=== PATIENT | female | born 1980 | race Caucasian/White ===

== ENCOUNTER 2017-12-06 21:45 | Emergency (ER) | payer OTHER ==
[~2017-12-06] VITALS: Ht 160 cm; Wt 86.2 kg
[~2017-12-06 21:45] MED LIST: ACET-8386 PO; IBUP-2213 PO; PREN-385 PO
[2017-12-06 21:47] VITALS: BP 131/72
--- NOTE | 2017-12-06 21:47 | NUR ---
37 Y/O F W/C/O R UPPER CHEST PAIN/SOB/COUGH X YESTERDAY ON AND OFF. MED HX . DEMIAN BANSAL MADE AWARE.
--- NOTE | 2017-12-06 21:50 | NUR ---
PT AMBULATED TO BED 5. FAMILY/FRIEND AT BEDSIDE
--- NOTE | 2017-12-06 22:44 | NUR ---
EKG DONE, UA DONE HCG-NEG, VSS
--- NOTE | 2017-12-06 23:00 | NUR ---
Dr. Cohn evaluating patient at bedside.
[2017-12-06 23:14] VITALS: BP 112/71
== END 2017-12-06 23:14 | disposition home or self-care (01) ==
LOC: MED 21:45
DX: R07.89 Other chest pain (principal); R05 Cough; R00.2 Palpitations
CPT/HCPCS: 93005; 99283

== ENCOUNTER 2018-01-11 10:28 | Outpatient (CLI) | payer OTHER | END 2018-01-11 21:01 | disposition home or self-care (01) | LOC: MUS 10:28 | DX: E04.1 Nontoxic single thyroid nodule (principal) | CPT/HCPCS: 76536; Q0092 ==

== ENCOUNTER 2018-02-02 13:45 | Emergency (ER) | payer OTHER ==
[~2018-02-02] VITALS: Ht 162.6 cm; Wt 81.6 kg
[2018-02-02 13:57] VITALS: BP 126/76
--- NOTE | 2018-02-02 14:01 | NUR ---
pt stable to wait in lobby area, pt informed to notify staff with any acute changes. ok per Dr Edmond to wait in lobby.
--- NOTE | 2018-02-02 14:40 | NUR ---
PT AMBULATES TO BED 1 AT THIS TIME W/ STEADY GAIT
--- NOTE | 2018-02-02 15:00 | NUR ---
37f bib with c/o 10/01 "Dull" non provoked intermittent chest pain x 5 days with palpitations. Patient sts she believes her medication, liquid iodine, is causing the chest pain. Patient denies any nausea or SOB. Skin is dry/color appriopriate for ethinicty. RR are even and unlabored. Patient to cardiac, bp, pulse, and pulse ox monitoring. Changed into gown. Awaiting er md saul. Will continue to monitor.
[2018-02-02 16:28] LABS: BASOPHILS % (AUTO) 0.5 % (0.0-2.0); EOSINOPHILS % (AUTO) 0.5 % (0.0-4.0); HEMATOCRIT 42.8 % (36-48); LYMPHOCYTES # (AUTO) 1.2 K/uL (2.5-16.5); LYMPHOCYTES % (AUTO) 20.6 % (20.5-51.1); MEAN CORPUSCULAR HEMOGLOBIN 29 pg (27-31); MEAN CORPUSCULAR HGB CONC 33 g/dL (33-37); MEAN CORPUSCULAR VOLUME 89.6 fL (80-94); MONOCYTES # (AUTO) 0.4 K/uL (0.8-1.0); MONOCYTES % (AUTO) 7.3 % (1.7-9.3); NEUTROPHILS % (AUTO) 71.1 % (42.2-75.2); PLATELET COUNT (AUTO) 191 K/uL (140-450); RED BLOOD CELL COUNT(AUTO) 4.78 MIL/uL (4.20-5.40); RED CELL DISTRIBUTION WIDTH 13.3 % (11.6-13.7); WHITE BLOOD COUNT (AUTO) 5.7 K/uL (4.8-10.8)
[2018-02-02 16:49] LABS: PROTHROMBIN TIME 12.1 secs (10.8-13.4)
[2018-02-02 16:51] LABS: ANION GAP 13.7 (8-16); CARBON DIOXIDE 26.4 mmol/L (21-32); CREATININE 0.9 mg/dL (0.6-1.3); POTASSIUM 4.1 mmol/L (3.5-5.1); TOTAL BILIRUBIN 0.3 mg/dL (0.0-1.0)
[2018-02-02 17:01] LABS: FREE T4 (FREE THYROXINE) 0.67 ng/dL (0.76-1.46); THYROID STIMULATING HORMONE 2.48 uIU/mL (0.34-3.74)
[2018-02-02 18:50] VITALS: BP 117/78
--- NOTE | 2018-02-02 18:50 | NUR ---
Patient discharged with v/s stable. Written and verbal after care instructions given and explained. Patient verbalized understanding. Ambulatory with steady gait. All questions addressed prior to discharge. Advised to follow up with PMD.
== END 2018-02-02 18:50 | disposition home or self-care (01) ==
LOC: MED 13:45
DX: R00.2 Palpitations (principal); E04.1 Nontoxic single thyroid nodule; R45.82 Worries; F41.9 Anxiety disorder, unspecified; E03.9 Hypothyroidism, unspecified; Z79.899 Other long term (current) drug therapy
CPT/HCPCS: 36415; 71045; 80053; 81002; 81025; 83735; 83880; 84439; 84443; 84479; 84484; 85025; 85610; 85730; 93005; 99285; Q0092

== ENCOUNTER 2018-02-23 08:30 | Outpatient (CLI) | payer OTHER ==
[2018-02-23 09:18] LABS: BASOPHILS % (AUTO) 0.4 % (0.0-2.0); EOSINOPHILS % (AUTO) 0.8 % (0.0-4.0); HEMATOCRIT 40.1 % (36-48); HEMOGLOBIN 13.5 g/dL (12.0-16.0); LYMPHOCYTES # (AUTO) 0.9 K/uL (2.5-16.5); MEAN CORPUSCULAR HEMOGLOBIN 30 pg (27-31); MEAN CORPUSCULAR HGB CONC 34 g/dL (33-37); MEAN CORPUSCULAR VOLUME 89.3 fL (80-94); MONOCYTES # (AUTO) 0.3 K/uL (0.8-1.0); MONOCYTES % (AUTO) 4.6 % (1.7-9.3); NEUTROPHILS # (AUTO) 4.3 K/uL (1.8-7.7); NEUTROPHILS % (AUTO) 77.2 % (42.2-75.2); PLATELET COUNT (AUTO) 169 K/uL (140-450); RED BLOOD CELL COUNT(AUTO) 4.49 MIL/uL (4.20-5.40); RED CELL DISTRIBUTION WIDTH 13.4 % (11.6-13.7); WHITE BLOOD COUNT (AUTO) 5.5 K/uL (4.8-10.8)
[2018-02-23 13:33] LABS: ANION GAP 10.6 (8-16); CARBON DIOXIDE 28.1 mmol/L (21-32); POTASSIUM 3.7 mmol/L (3.5-5.1)
[2018-02-23 13:34] LABS: CREATININE 0.9 mg/dL (0.6-1.3); TOTAL BILIRUBIN 0.4 mg/dL (0.0-1.0)
[2018-02-23 13:35] LABS: ALBUMIN 3.9 g/dL (3.4-5.0)
[2018-02-23 13:40] LABS: THYROID STIMULATING HORMONE 0.19 uIU/mL (0.34-3.74)
[2018-02-23 13:41] LABS: FREE T4 (FREE THYROXINE) 1.21 ng/dL (0.76-1.46)
[2018-02-23 18:03] LABS: CHOL/HDL RATIO 2.7 (1-4.5)
[2018-02-24 10:28] LABS: FERRITIN 52 ng/mL (15-150); THYROID PEROXIDASE (TPO) AB 8 IU/mL (0-34); TRIIODOTHYRONINE 105 ng/dL (71-180)
== END 2018-02-23 21:27 | disposition home or self-care (01) ==
LOC: MLB 08:30
PROVIDERS: ATTEND Internal Medicine Geriatric Medicine
DX: Z00.01 Encounter for general adult medical examination with abnormal findings (principal); R53.83 Other fatigue; E07.9 Disorder of thyroid, unspecified
CPT/HCPCS: 36415; 80053; 82306; 82728; 83540; 84439; 84443; 84480; 85025; 86376; 86800

== ENCOUNTER 2018-07-19 09:04 | Outpatient (CLI) | payer OTHER | END 2018-07-19 19:52 | disposition home or self-care (01) | LOC: MLB 09:04 | PROVIDERS: ATTEND Internal Medicine Geriatric Medicine | DX: E03.9 Hypothyroidism, unspecified (principal) | CPT/HCPCS: 36415; 84439; 84443 ==

== ENCOUNTER 2018-09-20 05:30 | Emergency (ER) | payer OTHER ==
[~2018-09-20] VITALS: Ht 167.6 cm; Wt 83.9 kg
[2018-09-20 05:42] VITALS: BP 132/93
--- NOTE | 2018-09-20 05:42 | NUR ---
PT AMBULATED TO BED 4 WITH VSS.
--- NOTE | 2018-09-20 05:45 | NUR ---
PATIENT CAME IN TO ER WITH C/O PAIN IN THE THROAT, KOHLER,REDNESS AND SWELLING TO THE RIGHT EYE, AND RIGHT EAR X 2 DAYS.PT STATES THAT HER THROAT IS SORE AND TONSILS AND ARE SWOLLEN.PT HAS REDNESS TO THE BACK OF HER THROAT. PATIENT STATES PAIN OF 7/10 AT THIS TIME;PT IS A/OX4.VSS; PATIENT POSITIONED FOR COMFORT; HOB ELEVATED; BEDRAILS UP X2; BED DOWN. ER MD MADE AWARE OF PT STATUS.
--- NOTE | 2018-09-20 06:00 | NUR ---
Note marthaone in EDM - 09/20/18 at 0636 by [email or web address] Patient discharged with v/s stable. Written and verbal after care instructions given and explained. Patient alert, oriented and verbalized understanding of instructions. Ambulatory with steady gait. All questions addressed prior to discharge. ID band removed. Patient advised to follow up with PMD. Rx of AMOXICILLIN AND POLYMYXIN B SULFATE/TRIMETHOPRIM SULFATE WAS given. Patient educated on indication of medication including possible reaction and side effects. Opportunity to ask questions provided and answered.
[2018-09-20 06:16] VITALS: BP 132/93
--- NOTE | 2018-09-20 06:16 | NUR ---
Patient discharged with v/s stable. Written and verbal after care instructions given and explained. Patient alert, oriented and verbalized understanding of instructions. Ambulatory with steady gait. All questions addressed prior to discharge. ID band removed. Patient advised to follow up with PMD. Rx of AMOXICILLIN AND POLYMYXIN B SULFATE/TRIMETHOPRIM SULFATE WAS given. Patient educated on indication of medication including possible reaction and side effects. Opportunity to ask questions provided and answered.
== END 2018-09-20 06:16 | disposition home or self-care (01) ==
LOC: MED 05:30 → EEVIPCON 05:30 → MED 06:16
DX: J02.0 Streptococcal pharyngitis (principal); H10.9 Unspecified conjunctivitis; H92.01 Otalgia, right ear; E07.9 Disorder of thyroid, unspecified; Z79.899 Other long term (current) drug therapy
CPT/HCPCS: 99283

== ENCOUNTER 2018-09-22 06:34 | Emergency (ER) | payer OTHER ==
[~2018-09-22] VITALS: Ht 167.6 cm; Wt 83.9 kg
--- NOTE | 2018-09-22 06:36 | NUR ---
PT TAKEN TO BED 9
[2018-09-22 06:41] VITALS: BP 122/75
--- NOTE | 2018-09-22 07:14 | NUR ---
Dr. Cohn evaluating patient at bedside.
[2018-09-22 07:21] VITALS: BP 118/69
--- NOTE | 2018-09-22 07:22 | NUR ---
Patient discharged with v/s stable. Written and verbal after care instructions given and explained. Patient alert, oriented and verbalized understanding of instructions. Ambulatory with steady gait. All questions addressed prior to discharge. ID band removed. Patient advised to follow up with PMD. Rx of NORCO, PREDNISONE given. Patient educated on indication of medication including possible reaction and side effects. Opportunity to ask questions provided and answered.
== END 2018-09-22 07:22 | disposition home or self-care (01) ==
LOC: MED 06:34
DX: J02.0 Streptococcal pharyngitis (principal); Z79.891 Long term (current) use of opiate analgesic; Z79.1 Long term (current) use of non-steroidal anti-inflammatories (NSAID)
CPT/HCPCS: 99283

== ENCOUNTER 2020-02-06 05:16 | Inpatient (IN) | payer OTHER, SELFPAY ==
[2020-01-29 12:38] LABS: BASOPHILS % (AUTO) 0.1 % (0.0-2.0); EOSINOPHILS % (AUTO) 0.5 % (0.0-4.0); HEMATOCRIT 35.7 % (36-48); HEMOGLOBIN 12.1 g/dL (12.0-16.0); LYMPHOCYTES # (AUTO) 0.9 K/uL (2.5-16.5); LYMPHOCYTES % (AUTO) 11.7 % (20.5-51.1); MEAN CORPUSCULAR HEMOGLOBIN 30 pg (27-31); MEAN CORPUSCULAR HGB CONC 34 g/dL (33-37); MEAN CORPUSCULAR VOLUME 88.1 fL (80-94); MONOCYTES # (AUTO) 0.5 K/uL (0.8-1.0); MONOCYTES % (AUTO) 6.2 % (1.7-9.3); NEUTROPHILS # (AUTO) 6.1 K/uL (1.8-7.7); NEUTROPHILS % (AUTO) 81.5 % (42.2-75.2); PLATELET COUNT (AUTO) 176 K/uL (140-450); RED BLOOD CELL COUNT(AUTO) 4.06 MIL/uL (4.20-5.40); RED CELL DISTRIBUTION WIDTH 13.7 % (11.6-13.7); WHITE BLOOD COUNT (AUTO) 7.5 K/uL (4.8-10.8)
[2020-01-29 12:40] LABS: ANION GAP 15.2 (8-16); CARBON DIOXIDE 23.7 mmol/L (21-32); POTASSIUM 3.9 mmol/L (3.5-5.1)
[2020-01-29 12:41] LABS: CREATININE 0.7 mg/dL (0.6-1.3); TOTAL BILIRUBIN 0.3 mg/dL (0.0-1.0)
[2020-01-29 12:42] LABS: ALBUMIN 2.8 g/dL (3.4-5.0)
[~2020-02-06] VITALS: Ht 162.6 cm; Wt 102.5 kg
[2020-02-06] MEDS ORDERED: CITRIC ACID/SODIUM CITRATE 30 ML UDC PO ONE (06:30)
[2020-02-06] MEDS: LACTATED RINGERS 1,000 ML IV SCH ×2 (06:33→07:04)
[2020-02-06 06:34] LABS: APPEARANCE,URINE SLIGHTLY HAZY (CLEAR); BILIRUBIN,URINE NEGATIVE (NEGATIVE); BLOOD, URINE NEGATIVE (NEGATIVE); COLOR,URINE YELLOW (YELLOW); LEUKOCYTE ESTERASE ,URINE 2+ (NEGATIVE); NITRITE, URINE NEGATIVE (NEGATIVE); UGLUCOSE NEGATIVE (NEGATIVE)
[2020-02-06] MEDS ORDERED: CITRIC ACID/SODIUM CITRATE 30 ML UDC ONE (06:38)
[2020-02-06] MEDS ORDERED: LACTATED RINGERS 1,000 ML IV SCH ×2 (06:45)
[2020-02-06] MEDS ORDERED: ceFAZolin 1,000 MG VIAL ONE (06:51)
[2020-02-06] MEDS ORDERED: OXYTOCIN 20 UNITS in LACTATED RINGERS 1,000 ML IV SCH (06:52)
[2020-02-06] MEDS ORDERED: NALOXONE 0.4 MG/ML VIAL IVP PRN (06:55)
[2020-02-06] MEDS ORDERED: ONDANSETRON 4 MG/2 ML VIAL IVP PRN ×2 (06:55)
[2020-02-06] MEDS ORDERED: diphenhydrAMINE 50 MG/ML VIAL IVP PRN (06:55)
[2020-02-06] MEDS ORDERED: MEPERIDINE 25 MG/ML SYR IVP PRN (06:55)
[2020-02-06] MEDS ORDERED: HYDROmorphone 1 MG/ML AMP IVP PRN (06:55)
[2020-02-06] MEDS ORDERED: MORPHINE PRES FREE 10 MG/10 ML AMP IV ONE (06:56)
[2020-02-06] MEDS ORDERED: KETAMINE 500 MG/5 ML VIAL ONE (06:57)
[2020-02-06] MEDS ORDERED: MIDAZOLAM 2 MG/2 ML VIAL ONE (06:57)
[2020-02-06 07:12] VITALS: BP 114/77
[2020-02-06] MEDS ORDERED: PHENYLEPHRINE 10 MG/ML VIAL ONE (07:30)
[2020-02-06] MEDS ORDERED: ePHEDrine 50 MG/ML VIAL ONE (07:30)
[2020-02-06] MEDS ORDERED: ONDANSETRON 4 MG/2 ML VIAL ONE (07:30)
[2020-02-06] MEDS ORDERED: OXYTOCIN 20 UNITS/LR PREMIX 1,000 ML IV ONE (08:15)
[2020-02-06] MEDS ORDERED: HYDROcodone/APAP 5/325 MG 1 TAB TAB PO PRN (08:40)
[2020-02-06] MEDS ORDERED: TEMAZEPAM 15 MG CAP PO PRN (08:40)
[2020-02-06] MEDS ORDERED: METHYLERGONOVINE 0.2 MG/ML AMP IM PRN (08:40)
[2020-02-06] MEDS ORDERED: IBUPROFEN 800 MG TAB PO PRN (08:40)
[2020-02-06] MEDS ORDERED: MEASLES, MUMPS, AND RUBELLA 1 VIAL SQVAC PRN (08:40)
[2020-02-06] MEDS ORDERED: oxyCODONE/APAP 5/325 MG 1 TAB TAB PO PRN (08:40)
[2020-02-06 09:31] LABS: RBC,URINE 0-5 /HPF (0-5)
--- NOTE | 2020-02-06 09:43 | NUR ---
PATIENT HAS BEEN SCREENED AND CATEGORIZED LOW NUTRITION RISK. PATIENT WILL BE SEEN WITHIN 7 DAYS OF ADMISSION. 02/13/[address]
[2020-02-06] MEDS: OXYTOCIN 20 UNITS in LACTATED RINGERS 1,000 ML IV SCH (10:38)
[2020-02-06] MEDS: KETOROLAC 30 MG/ML VIAL IVP SCH ×2 (13:54→20:34)
[2020-02-06] MEDS: ACETAMINOPHEN 325 MG TAB PO SCH ×2 (18:00→20:32)
[2020-02-06] MEDS: SIMETHICONE 80 MG TAB.CHEW PO SCH (18:31)
[2020-02-06] MEDS ORDERED: DOCUSATE SOD/SENNA 50/8.6 MG 1 TAB PO SCH (21:00)
[2020-02-07] MEDS ORDERED: OXYTOCIN 20 UNITS/LR PREMIX 1,000 ML IV ONE (02:31)
[2020-02-07] MEDS: KETOROLAC 30 MG/ML VIAL IVP SCH ×2 (02:38→09:14)
[2020-02-07] MEDS: OXYTOCIN 20 UNITS in LACTATED RINGERS 1,000 ML IV SCH (02:39)
[2020-02-07] MEDS: ACETAMINOPHEN 325 MG TAB PO SCH ×2 (02:39→09:12)
[2020-02-07 06:25] LABS: BASOPHILS % (AUTO) 0.1 % (0.0-2.0); EOSINOPHILS % (AUTO) 0.3 % (0.0-4.0); HEMATOCRIT 31.8 % (36-48); HEMOGLOBIN 10.9 g/dL (12.0-16.0); LYMPHOCYTES # (AUTO) 0.9 K/uL (2.5-16.5); LYMPHOCYTES % (AUTO) 8.2 % (20.5-51.1); MEAN CORPUSCULAR HEMOGLOBIN 30 pg (27-31); MEAN CORPUSCULAR HGB CONC 34 g/dL (33-37); MEAN CORPUSCULAR VOLUME 88.1 fL (80-94); MONOCYTES # (AUTO) 0.6 K/uL (0.8-1.0); MONOCYTES % (AUTO) 5.3 % (1.7-9.3); NEUTROPHILS # (AUTO) 8.9 K/uL (1.8-7.7); NEUTROPHILS % (AUTO) 86.1 % (42.2-75.2); PLATELET COUNT (AUTO) 165 K/uL (140-450); RED BLOOD CELL COUNT(AUTO) 3.61 MIL/uL (4.20-5.40); RED CELL DISTRIBUTION WIDTH 13.7 % (11.6-13.7); WHITE BLOOD COUNT (AUTO) 10.4 K/uL (4.8-10.8)
[2020-02-07] MEDS ORDERED: KETOROLAC 30 MG/ML VIAL ONE (09:02)
[2020-02-07] MEDS ORDERED: ACETAMINOPHEN 325 MG TAB ONE (09:03)
[2020-02-07] MEDS: SIMETHICONE 80 MG TAB.CHEW PO SCH (09:13)
[2020-02-07] MEDS ORDERED: CAMERA MC ONE (16:20)
== END 2020-02-07 17:15 | disposition home or self-care (01) | DRG 785 ==
LOC: MLD 05:16 → EEVIPCON 05:16 → MFCC 09:40
PROVIDERS: ADMIT Obstetrics & Gynecology; ATTEND Obstetrics & Gynecology
PROC: 0UB70ZZ Excision of Bilateral Fallopian Tubes, Open Approach (ICD-10-PCS; 2020-02-06)
PROC: 10D00Z1 Extraction of Products of Conception, Low, Open Approach (ICD-10-PCS; principal; 2020-02-06 07:30)
DX: O34.211 Maternal care for low transverse scar from previous cesarean delivery (principal); O99.214 Obesity complicating childbirth; Z37.0 Single live birth; Z30.2 Encounter for sterilization; Z3A.39 39 weeks gestation of pregnancy
CPT/HCPCS: 36415; 51702; 80053; 81001; 85025; 86592; 86886; 86900; 86901; 87081; 87086; J0690; J1200; J1885; J2250; J2270; J2370; J2405; J2590; J7060; J7120; Q0163; U0003-CS

== ENCOUNTER 2024-04-13 08:35 | Emergency (ER) | payer OTHER ==
[~2024-04-13] VITALS: Ht 162.6 cm; Wt 97.2 kg
[~2024-04-13 08:35] MED LIST changes: -ACET-8386 PO; +ACET-8905 PO
[2024-04-13 08:39] VITALS: BP 119/77; PULSE 82; RESP 18; TEMP 97.3; O2SAT 99
[2024-04-13 08:59] LABS: APPEARANCE,URINE CLEAR (CLEAR); BILIRUBIN,URINE NEGATIVE (NEGATIVE); BLOOD, URINE NEGATIVE (NEGATIVE); COLOR,URINE YELLOW (YELLOW); LEUKOCYTE ESTERASE ,URINE NEGATIVE (NEGATIVE); NITRITE, URINE NEGATIVE (NEGATIVE); PROTEIN,URINE NEGATIVE (NEGATIVE); UGLUCOSE NEGATIVE (NEGATIVE); UROBILINOGEN,URINE 0.2 EU/dL (0.2 - 1)
[2024-04-13 09:04] LABS: BACTERIA,URINE OCCASSIONAL /HPF (None Seen); MUCUS,URINE 1+ /LPF (None Seen); RBC,URINE 0-5 /HPF (0-5); SQUAMOUS EPITHELIAL CELL,UR 0-3 (FEW) /LPF (0-3 (FEW)); WBC,URINE 0-5 /HPF (0-5)
[2024-04-13] MEDS ORDERED: KETOROLAC 30 MG/ML VIAL ONE (09:04)
[2024-04-13] MEDS: KETOROLAC 30 MG/ML VIAL IM ONE (09:07)
[2024-04-13 09:24] VITALS: BP 125/70; PULSE 85; RESP 18; TEMP 207.1; O2SAT 99
== END 2024-04-13 09:24 | disposition home or self-care (01) ==
LOC: MED 08:35
DX: R10.30 Lower abdominal pain, unspecified (principal); M54.50 Low back pain, unspecified; N93.9 Abnormal uterine and vaginal bleeding, unspecified; R03.0 Elevated blood-pressure reading, without diagnosis of hypertension; Z79.899 Other long term (current) drug therapy
CPT/HCPCS: 81001; 81025; 96372; 99283; J1885